=== PATIENT | male | born 1980 | race Caucasian/White ===

== ENCOUNTER 2018-11-25 05:03 | Emergency (ER) | payer MEDICAID ==
[~2018-11-25] VITALS: Ht 182.9 cm; Wt 84.0 kg
[2018-11-25] MEDS ORDERED: ACETAMINOPHEN 325MG TABLET PO ONE (07:45)
[2018-11-25 08:05] VITALS: BP 129/88
== END 2018-11-25 08:13 | disposition home or self-care (01) ==
LOC: ER 05:03
DX: S00.83XA Contusion of other part of head, initial encounter (principal); M79.10 Myalgia, unspecified site; Z88.1 Allergy status to other antibiotic agents; W18.39XA Other fall on same level, initial encounter; Y93.89 Activity, other specified; Y92.89 Other specified places as the place of occurrence of the external cause; Y99.8 Other external cause status
CPT/HCPCS: 70486; 99284